=== PATIENT | female | born 1970 | race Caucasian/White ===

== ENCOUNTER 2017-04-05 17:44 | Emergency (ER) | payer BC, OTHER ==
[~2017-04-05] VITALS: Ht 170.2 cm; Wt 55.0 kg
[2017-04-05 17:47] VITALS: BP 146/70; PULSE 101; RESP 17; TEMP 98.2; O2SAT 98
[2017-04-05] MEDS ORDERED: LIDOCAINE HCL 2% 50 ML VIAL ONE (18:10)
[2017-04-05] MEDS ORDERED: BUPIVACAINE HCL PF 0.5% 10 ML VIAL ONE (18:10)
[2017-04-05] MEDS ORDERED: BUPIVACAINE HCL PF 0.5% 10 ML VIAL INFIL ONE (18:15)
[2017-04-05] MEDS ORDERED: LIDOCAINE HCL 2% 20 ML VIAL INFIL ONE (18:15)
[2017-04-05] MEDS ORDERED: TETANUS/DIPHTHERIA TOXOID ADULT 0.5 ML VIAL IM ONE (18:15)
[2017-04-05] MEDS ORDERED: AMOXICILLIN/CLAVULANATE K 875 MG TAB PO ONE (18:15)
--- NOTE | 2017-04-05 18:49 | PD ---
HPI Chief Complaint: Bite or Sting Time Seen by Provider: 17:56 Travel History International Travel<30 days: No Contact w/Intl Traveler<30days: No Traveled to known affect area: No History of Present Illness HPI Patient comes in complaining of tip of her left middle finger being cut off by her dog on accident. Patient states that her dogs got tangled up and she is trying them when she accidentally got her finger tip bit off. Patient denies doing anything for this prior to coming to the emergency department. Patient reports dogs vaccinations are all up-to-date. Patient states her tetanus shot is not up-to-date. Patient throbbing pain in the tip of her left middle finger and radiates throughout her finger. Patient is right- hand dominant. Pain is worse palpation. PFSH Past Medical History Autoimmune Disease: No Blood Disorders: No Cancer: No Chemotherapy: No Cerebrovascular Accident: No GERD: No Glaucoma: No Hepatitis: No Hiatal Hernia: No Kidney Stones: No Psychiatric: No Radiation Therapy: No Renal Failure: No Seizures: No Thyroid Disease: No Ulcer: No ?: Not Past Surgical History AICD: No Genitourinary Surgery: No Pacemaker: No Social History Alcohol Use: Yes (2 GLASSES OF WINE OR BEER EVERYOYHER WEEK) Tobacco Use: No Substance Use: No Allergies-Medications (Allergen,Severity, Reaction): Coded Allergies: No Known Allergies (Verified Allergy, Severe, 05/04/03) Reported Meds & Prescriptions Reported Meds & Active Scripts Active Ibuprofen 800 Mg Tab 800 Mg PO Q8H PRN Augmentin (Amoxicillin-Clavulanate) 875-125 Mg Tab 1 Tab PO BID 10 Days Review of Systems Except as stated in HPI: all other systems reviewed are Neg Physical Exam Narrative GENERAL: Well-developed, well nourished, in no acute distress, and non-ill appearing. SKIN: Small proximal centimeter laceration noted on the lateral aspect of the left third digit along with tip of the same digit being amputated. There is no bony involvement noted. Patient is neurovascularly intact. HEAD: Atraumatic. Normocephalic. EYES: Pupils equal and round. EOMI. No scleral icterus. No injection or drainage. ENT: No nasal bleeding or discharge. Mucous membranes pink and moist. NECK: Trachea midline. Supple. No nuclear rigidity. RESPIRATORY: No accessory muscle use. No respiratory distress. MUSCULOSKELETAL: No obvious deformities. No clubbing. No cyanosis. No edema. Full range of motion. NEUROLOGICAL: Awake and alert. No obvious cranial nerve deficits. Motor grossly within normal limits. Normal speech. PSYCHIATRIC: Appropriate mood and affect; insight and judgment normal. Data Data Last Documented VS Vital Signs Date Time Temp Pulse Resp B/P (MAP) Pulse Ox O2 Delivery O2 Flow Rate FiO2 04/05/17 19:09 04/05/17 18:23 16 04/05/17 17:47 98.2 101 98 Orders Orders Bupivacaine Pf 0.5% Inj (Marcaine Pf 0.5 (04/05/17 18:10) Lidocaine 2% Inj (Xylocaine 2% Inj) (04/05/17 18:10) Tetanus/Diphtheria Tox Adult (Tetanus/Di (04/05/17 18:15) Amoxicil-Clavulanate (Augmentin) (04/05/17 18:15) Bupivacaine Pf 0.5% Inj (Marcaine Pf 0.5 (04/05/17 18:15) Lidocaine 2% Inj (Xylocaine 2% Inj) (04/05/17 18:15) Wound Care (04/05/17 18:51) MDM Medical Decision Making Medical Screen Exam Complete: Yes Emergency Medical Condition: Yes Differential Diagnosis Laceration, abrasion, dog bite, amputation, other Narrative Course Patient in no obvious distress upon re-evaluation. Discussed patient with Dr. Jean, who saw and evaluated the patient and is in agreement with plan of care and disposition.. Any questions/concerns in reference to patient diagnosis/ condition discussed and clarified prior to patient's discharge. Reinforced sheer importance of close follow up with patient's primary physician or primary care clinic. Instructed patient to return to ED immediately, if symptoms return/ worsen. Pt showed understanding of above instructions. Further instructions and recommendations were detailed in discharge paperwork. Pt ambulated without difficulty out of ED at discharge. Procedures Procedure Narrative LACERATION REPAIR LOCATION: Left middle finger middle phalanx lateral aspect LENGTH: Approximately one centimeters in total length NUMBER OF STITCHES/SIDDHARTH: 1 simple interrupted REPAIR: Verbal consent was obtained. The area of the laceration was cleaned and prepped. Digital block was performed using a mixture 50% lidocaine without epi and 50% Marcaine without epi. The wound was copiously irrigated and explored without evidence of foreign body, bony involvement, ligament injury, tendon injury, or neurovascular injury. The wound was closely reapproximated using 5-0 Vicryl. This was a single layer repair. A sterile dressing was applied by nurse. The patient was advised to keep the affected area as clean and dry as possible using soap and water. There were no complications. Patient tolerated the procedure well. LACERATION REPAIR LOCATION: Left middle finger distal tip amputation NUMBER OF STITCHES/SIDDHARTH: 7 simple interrupted REPAIR: Verbal consent was obtained. The area of the laceration was cleaned and prepped. Digital block was performed using a mixture 50% lidocaine without epi and 50% Marcaine without epi. The wound was copiously irrigated and explored without evidence of foreign body, bony involvement, ligament injury, tendon injury, or neurovascular injury. The soft tissue was brought closely together using 5-0 Vicryl. This was a single layer repair. A sterile dressing was applied by nurse. The patient was advised to keep the affected area as clean and dry as possible using soap and water. There were no complications. Patient tolerated the procedure well. Diagnosis Primary Impression: Fingertip amputation Qualified Codes: S68.129A - Partial traumatic metacarpophalangeal amputation of unspecified finger, initial encounter Additional Impression: Dog bite of finger Qualified Codes: S61.259A - Open bite of unspecified finger without damage to nail, initial encounter; W54.0XXA - Bitten by dog, initial encounter Referrals: Heidi Funk MD Patient Instructions: Animal Bite (ED), Care For Your Absorbable Stitches (ED) , Finger Amputation (ED), General Instructions Additional Instructions: Follow-up with your hand surgeon next week. Take all medication as prescribed. Keep wound dry and clean as possible using soap and water. Use Neosporin to promote healing. Do not soak or submerge wound. Return to the emergency department if symptoms get worse. Med/Other Pt SpecificInfo: Prescription(s) given Scripts Ibuprofen (Ibuprofen) 800 Mg Tab 800 MG PO Q8H Y for Pain/Inflammation, #21 TAB 0 Refills Prov: Basil Jean MD 04/05/17 Amoxicillin-Clavulanate (Augmentin) 875-125 Mg Tab 1 TAB PO BID for Infection for 10 Days, TAB 0 Refills Prov: Basil Jean MD 04/05/17 Disposition: 01 DISCHARGE HOME Condition: Stable Mic Herring Apr 05, 2017 18:49
[2017-04-05] MEDS ORDERED: AUGM875T3 PO (18:50)
[2017-04-05] MEDS ORDERED: IBUP800T23 PO (18:50)
--- NOTE | 2017-04-05 19:06 | PD ---
Data Data Last Documented VS Vital Signs Date Time Temp Pulse Resp B/P (MAP) Pulse Ox O2 Delivery O2 Flow Rate FiO2 04/05/17 18:23 16 04/05/17 17:47 98.2 101 146/70 (95) 98 Orders Orders Bupivacaine Pf 0.5% Inj (Marcaine Pf 0.5 (04/05/17 18:10) Lidocaine 2% Inj (Xylocaine 2% Inj) (04/05/17 18:10) Tetanus/Diphtheria Tox Adult (Tetanus/Di (04/05/17 18:15) Amoxicil-Clavulanate (Augmentin) (04/05/17 18:15) Bupivacaine Pf 0.5% Inj (Marcaine Pf 0.5 (04/05/17 18:15) Lidocaine 2% Inj (Xylocaine 2% Inj) (04/05/17 18:15) Wound Care (04/05/17 18:51) MDM Supervised Visit with TOMMY: Yes Narrative Course The history, exam, and medical decision-making in the associated mid-level provider note were completed with my assistance. I reviewed and agree with the findings presented. I attest that I had a [id number] encounter with the patient on the same day, and personally performed and documented my assessment and findings in the medical record. *My assessment and Findings: 46-year-old woman was breaking up her dogs when she got a fingertip amputation to the left second digit. She is a distal fingertip amputation just involving half the nail. She has no bony exposure. We repaired and pulled in all the soft tissue. She was placed on antibiotics. Diagnosis Primary Impression: Fingertip amputation Qualified Codes: S68.129A - Partial traumatic metacarpophalangeal amputation of unspecified finger, initial encounter Additional Impression: Dog bite of finger Qualified Codes: S61.259A - Open bite of unspecified finger without damage to nail, initial encounter; W54.0XXA - Bitten by dog, initial encounter Referrals: Heidi Funk MD Patient Instructions: General Instructions, Animal Bite (ED), Finger Amputation (ED), Care For Your Absorbable Stitches (ED) Departure Forms: Tests/Procedures Additional Instruction: Follow-up with your hand surgeon next week. Take all medication as prescribed. Keep wound dry and clean as possible using soap and water. Use Neosporin to promote healing. Do not soak or submerge wound. Return to the emergency department if symptoms get worse. Scripts Ibuprofen (Ibuprofen) 800 Mg Tab 800 MG PO Q8H Y for Pain/Inflammation, #21 TAB 0 Refills Prov: Basil Jean MD 04/05/17 Amoxicillin-Clavulanate (Augmentin) 875-125 Mg Tab 1 TAB PO BID for Infection for 10 Days, TAB 0 Refills Prov: Basil Jean MD 04/05/17 Disposition: 01 DISCHARGE HOME Condition: Stable Basil Jean MD Apr 05, 2017 19:06
== END 2017-04-05 19:09 | disposition home or self-care (01) ==
LOC: NEPD 17:44
DX: S68.123A Partial traumatic metacarpophalangeal amputation of left middle finger, initial encounter (principal); W54.0XXA Bitten by dog, initial encounter; Y93.K9 Activity, other involving animal care; Z23 Encounter for immunization
CPT/HCPCS: 12001; 90471; 90714